=== PATIENT | female | born 1975 | race Caucasian/White ===

== ENCOUNTER → 2017-05-18 | Outpatient (REF) | payer OTHER | LOC: M LAB REF 19:11 | PROVIDERS: ATTEND Advanced Practice Midwife | DX: Z12.4 Encounter for screening for malignant neoplasm of cervix (principal) ==

== ENCOUNTER → 2020-08-06 | Outpatient (REF) | payer OTHER ==
[2020-08-06 17:00] LABS: BASO # 0.1 10^3/uL (0.0-0.2); BASO % 0.8 % (0.0-1.0); EOS # 0.6 10^3/uL (0.0-0.5); EOS % 5.3 % (0.0-3.0); HEMATOCRIT 37.6 % (36.0-47.0); HEMOGLOBIN 12.2 g/dl (12.0-15.5); LYMPH # 2.8 10^3/uL (1.5-5.0); LYMPH % 26.9 % (24.0-44.0); MEAN CORPUSCULAR HEMOGLOBIN 31.4 pg (27.0-33.0); MEAN CORPUSCULAR HGB CONC 32.4 g/dl (32.0-36.5); MEAN CORPUSCULAR VOLUME 96.9 fl (80.0-96.0); MONO # 0.7 10^3/uL (0.0-0.8); MONO % 6.9 % (2.0-8.0); NEUTROPHILS # 6.2 10^3/uL (1.5-8.5); NEUTROPHILS % 59.8 % (36.0-66.0); PLATELET COUNT, AUTOMATED 469 10^3/uL (150-450); RED BLOOD COUNT 3.88 10^6/uL (4.00-5.40); WHITE BLOOD COUNT 10.3 10^3/uL (4.0-10.0)
[2020-08-06 17:37] LABS: FOLLICLE STIMULATING HORMONE 55.8 mIU/mL; FREE T4 0.84 NG/DL (0.76-1.46); LUTEINIZING HORMONE 27.8 mIU/mL; THYROID STIMULATING HORMONE 2.28 uIU/ML (0.358-3.740)
== END ==
LOC: M LAB REF 16:05
PROVIDERS: ATTEND Obstetrics & Gynecology
DX: N92.1 Excessive and frequent menstruation with irregular cycle (principal)

== ENCOUNTER → 2020-08-15 | Outpatient (CLI) | payer BC ==
--- NOTE | 2020-08-15 15:30 | REP ---
INDICATION: N92.1 EXCESSIVE AND FREQUENT MENSTRUATION. COMPARISON: Comparison study March 16, 2013.. TECHNIQUE: Transabdominal and transvaginal scanning were performed. FINDINGS: Uterine dimensions are normal at 6.9 x 4.8 x 5.0 cm. Endometrial echo is 1.1 cm thick and centrally placed. No free fluid is seen in the cul-de-sac. Visualized bladder farr are smooth. There are 2 large hypoechoic fibroids measured as follows: 5.8 x 4.9 x 4.4, and 4.7 x 4.5 by 4.9 cm. Nabothian cysts are seen in the cervix. Exam quality is inhibited some degree by patient body habitus and uterine fibroids. Neither ovary could be identified transabdominally or transvaginally. There is no evidence of adnexal mass, cyst or free fluid.. . IMPRESSION: Fibroid uterus. Nabothian cysts. Neither ovary is directly visualized but no evidence of adnexal pathology is seen.. <Electronically signed by Geo Melton > 08/15/20 [id number]
== END ==
LOC: M WHC 13:53
PROVIDERS: ATTEND Obstetrics & Gynecology
DX: N92.1 Excessive and frequent menstruation with irregular cycle (principal); D25.9 Leiomyoma of uterus, unspecified

== ENCOUNTER → 2020-10-25 | Outpatient (CLI) | payer BC ==
[~2020-10-25] MED LIST: FAMO1TAB25 PO
== END ==
LOC: M LABSMTC 10:07
PROVIDERS: ATTEND Anesthesiology
DX: Z01.812 Encounter for preprocedural laboratory examination (principal); Z11.52 Encounter for screening for COVID-19

== ENCOUNTER 2020-10-30 05:59 | Day surgery (SDC) | payer BC, OTHER ==
[~2020-10-30] VITALS: Ht 162.6 cm; Wt 105.8 kg
[2020-10-30] VITALS (7 sets, daily range): BP systolic 114–124; BP diastolic 73–78
[2020-10-30] MEDS ORDERED: LR 1,000 ML IV ONE ×2 (06:00→07:05)
[2020-10-30] MEDS ORDERED: fentaNYL 250 MCG/5 ML INJECTION (J3010) As Ordered ONE (06:41)
[2020-10-30] MEDS ORDERED: MIDAZOLAM INJ 2MG/2ML VIAL (J2250 PER 1MG) As Ordered ONE (06:42)
[2020-10-30] MEDS ORDERED: propofoL 200 MG/20 ML VIAL As Ordered ONE (06:43)
[2020-10-30] MEDS ORDERED: ROCURONIUM BROMIDE 50 MG/5 ML VIAL As Ordered ONE ×2 (06:43→08:52)
[2020-10-30] MEDS ORDERED: LIDOCAINE 2% 100MG/5ML SDV (FOR ANES.) As Ordered ONE (06:44)
[2020-10-30] MEDS ORDERED: dexameTHASONE 4 MG/ML 1ML VIAL (J1100 PER 1MG) As Ordered ONE (06:44)
[2020-10-30] MEDS ORDERED: KETOROLAC 60MG 2ML VIAL As Ordered ONE (06:44)
[2020-10-30] MEDS ORDERED: SUGAMMADEX SODIUM 500 MG/5 ML VIAL (BRIDION) As Ordered ONE (06:45)
[2020-10-30] MEDS ORDERED: ACETAMINOPHEN 1000MG 100ML IV BTL (OFIRMEV) (J0131 PER 10MG) As Ordered ONE (06:45)
[2020-10-30 06:54] LABS: HEMOGLOBIN 13.6 g/dl (12.0-15.5); MEAN CORPUSCULAR HEMOGLOBIN 30.5 pg (27.0-33.0); MEAN CORPUSCULAR HGB CONC 32.4 g/dl (32.0-36.5); MEAN CORPUSCULAR VOLUME 94.2 fl (80.0-96.0); PLATELET COUNT, AUTOMATED 416 10^3/uL (150-450); RED BLOOD COUNT 4.46 10^6/uL (4.00-5.40); WHITE BLOOD COUNT 10.1 10^3/uL (4.0-10.0)
[2020-10-30] MEDS ORDERED: ceFAZolin SOD 2 GM in IV 1 EA IV ONE (07:10)
[2020-10-30] MEDS ORDERED: BUPIVACAINE/EPIN 0.25% 30 ML VIAL As Ordered ONE (07:40)
[2020-10-30] MEDS ORDERED: FLUORESCEIN 10% (100MG/ML) 5 ML VIAL As Ordered ONE (07:43)
[2020-10-30] MEDS ORDERED: OXYC1TAB23 PO (09:45)
[2020-10-30] MEDS ORDERED: fentaNYL 100 MCG/2 ML INJECTION (J3010) As Ordered ONE (10:02)
[2020-10-30] MEDS: fentaNYL 100 MCG/2 ML INJECTION (J3010) IV PRN ×3 (10:05→10:38)
[2020-10-30] MEDS ORDERED: HYDROMORPHONE HCL 0.5 MG/ 0.5 ML SYRINGE (J1170 PER 1) IV PRN (10:15)
[2020-10-30] MEDS ORDERED: METOCLOPRAMIDE INJ 10MG/2ML VIAL (J2765 PER 1) IV PRN (10:15)
[2020-10-30] MEDS ORDERED: LR 1,000 ML IV SCH ×2 (10:15→11:15)
[2020-10-30] MEDS ORDERED: oxyCODONE 5MG TAB PO PRN (10:15)
[2020-10-30] MEDS ORDERED: ONDANSETRON 4MG/2ML VIAL IV PRN (10:15)
--- NOTE | 2020-10-30 11:14 | RO ---
OPERATIVE NOTE DATE OF OPERATION: 10/30/2020 Ingris is a 44-year-old female with extensive history of excessive menstrual cycle and enlarged fibroid uterus. After extensive counseling, the decision was made to proceed with robotic-assisted total hysterectomy and removal of both tubes. PREOPERATIVE DIAGNOSIS: 1. Excessive menstruation. 2. Fibroid uterus. POSTOPERATIVE DIAGNOSIS: 1. Excessive menstruation. 2. Fibroid uterus. 3. Multiple large fibroids. PROCEDURE: 1. Robotic-assisted total hysterectomy. 2. Removal of both tubes. 3. Myomectomy. 4. Cystoscopy. SURGEON: Cl Flores DO OIL PIPE INSPECTOR HELPER: YASH Nino ANESTHESIA: General COMPLICATIONS: None. ESTIMATED BLOOD LOSS: Less than 20 mL. FINDINGS: An enlarged uterus with multiple fibroids. SPECIMENS SENT TO THE LAB: The uterus, tubes and multiple fibroids. On cystoscopy, bilateral ureteral jets were noted, no evidence of any bladder injury noted. DESCRIPTION OF PROCEDURE: After obtaining informed consent, the patient was taken to the operating room where general anesthetic was found to be adequate. She was then draped and prepped in the usual sterile fashion in the dorsal lithotomy position. At this point, a Resendiz catheter was placed in the bladder for drainage. We then placed a HUMI II uterine manipulator. Attention was then turned to the abdomen where the Veress needle was used at the umbilicus to insufflate the abdomen to approximately 3.5 liters. We then placed an 8 mm supraumbilical incision for the camera port and the camera port was then placed under direct visualization. Two left 8 mm lateral ports were placed, one for robotic arm 2 and the assist port and on the right, an 8 mm lateral port was placed for robotic arm 1. At this point, the patient was placed in steep Trendelenburg. The above noted findings were identified. The robot was brought to the patient's right side and docked. Then the camera port was docked in the usual fashion. Proper targeting was done and the remaining arms were then docked. We then placed a vessel sealer in arm 1 and a bipolar grasper in arm 2. I unscrubbed and went to the surgeon console to begin the surgery. Given the size of the uterus and the multiple fibroids, the uterus as well as the fibroids was occupying the entire cul-de-sac and as well, putting the pressure on the bladder. We could not visualize the bladder appropriately. At this point, the decision was made to perform a myomectomy using the vessel sealer as well as the bipolar grasper. An incision was made over the fibroid and the fibroids were then shelled out. We removed approximately three fibroids prior to beginning the hysterectomy. After securing the removal of the fibroids and securing good hemostasis, I then transected the mesosalpinx and removed the entire tube all the way down to the utero-ovarian ligament. The utero-ovarian ligament was then cauterized and cut using the vessel sealer. This was taken down to include the uterine artery. The opposite side was done in similar fashion. At this point, the bladder was pushed completely out of the operative field. After securing both uterine arteries, the vessel sealer was removed. An Endoshear was placed. Anterior and posterior colpotomy was performed. The uterus as well as some fibroids was removed as well as the fibroids were removed through the vagina. A moistened sponge lap was placed in the vagina to maintain pneumoperitoneum. 1 mL of fluorescein was given by the anesthesiologist to help with the cystoscopy. I then removed the Endoshear, placed a needle fence post driver and a 2-0 V-Loc suture was introduced. The vaginal cuff was then closed in a running fashion using the 2-0 V-Loc suture. The peritoneum over the vaginal cuff was also closed in a running fashion. The pelvis was copiously irrigated with normal saline and suctioned. No evidence of any bladder or ureteral injury was noted. I then rescrubbed, went to the patient's side, retrograde filled the bladder to approximately 230 mL of normal saline. The Resendiz catheter was removed. The cystoscope was inserted. Cystoscopy was performed. Bilateral ureteral jets noted, no evidence of any bladder injury noted at this point. At this point, the cystoscope was removed. The Resendiz catheter was placed in the bladder for drainage. I then went to the abdomen and all the robotic instruments were removed. The ports were removed and the incisions were then repaired using 3-0 Vicryl in a subcuticular fashion. 1/4% Marcaine was placed for postoperative pain, Dermabond placed. The patient tolerated the procedure well. She was then transferred to recovery room in stable condition. [facility]
[2020-10-30] MEDS ORDERED: PERCOCET 5MG/325MG TAB PO PRN (11:30)
[2020-10-30] MEDS: SIMETHICONE 80MG CHEW TAB PO SCH ×2 (12:44→18:37)
[2020-10-30] MEDS: IBUPROFEN 800 MG TAB PO SCH (18:38)
[2020-10-31] MEDS: SIMETHICONE 80MG CHEW TAB PO SCH ×2 (00:17→05:43)
[2020-10-31] MEDS: IBUPROFEN 800 MG TAB PO SCH ×2 (00:18→05:44)
[2020-10-31 02:00] VITALS: BP 115/75
[2020-10-31 06:00] VITALS: BP 122/80
== END 2020-10-31 10:54 | disposition home or self-care (01) ==
LOC: M SDC 05:59 → M MSPAV 11:03 → M SDC 10-31 10:54
PROVIDERS: ATTEND Obstetrics & Gynecology
DX: N92.1 Excessive and frequent menstruation with irregular cycle (principal); D25.9 Leiomyoma of uterus, unspecified; N80.0 Endometriosis of uterus; E66.9 Obesity, unspecified
CPT/HCPCS: 36415; 58571; 81025; 85027; 86850; 86900; 86901; 88307; J0131; J0690; J1100; J1885; J2250; J3010; S2900

== ENCOUNTER → 2020-11-22 | Outpatient (REF) | payer BC, OTHER ==
[~2020-11-22] MED LIST changes: +OXYC1TAB23 PO
== END ==
LOC: M LAB REF 15:53
PROVIDERS: ATTEND Advanced Practice Midwife
DX: R30.0 Dysuria (principal)